=== PATIENT | female | born 1970 | race Caucasian/White ===

== ENCOUNTER 2019-01-09 07:42 | Day surgery (SDC) | payer OTHER ==
[~2019-01-09 07:42] MED LIST: ALBU90OI INH; ALBU90OI6 INH; AMRIX PO; ATEN25 PO; AZIT250 PO; BENZ100A PO; BP MED; CEPH500 PO; CIPR500 PO; CLIN150 PO; CLIN300 PO; CRUTCH3 USE; Cleocin HCl150 MG PO; DULO60 PO; ESOM20 PO; FERSU300 PO; FLUSAL2505 IH; FLUT.05NI; Flovent Diskus50 MCG INH; HYDACE5 PO; HYDHOMSY PO; Hydromet Syrup473 ML PO; IBUP600 PO; IBUP800 PO; LEVSOD100 PO; LEVSOD112 PO; LEVSOD150 PO; MIRT15 PO; MULVITMINE; Mucinex600 MG PO; NAPR500 PO; NITR100CA PO; Norco 10-325 T1 EACH PO; OMEP20ER PO; ONDA4 PO; ONDA4ODT MM; OXYACE5T PO; OXYC5 PO; PERM5TC TOP; PRED20 PO; PROACE100 PO; PROAIR HFA; PROM25 PO; RANI150 PO; RXALBOI INH; RXCEPH500 PO; RXONDA4ODT MM; RXOXYACE PO; RXPROM25 PO; SULTRIDS PO; TRAM50 PO; ULTRA-LIGHT RO1 EACH MC; Ultram50 MG PO; Zofran Odt4 MG SL
--- NOTE | 2019-01-09 08:40 | NUR ---
PT ALLERGIES REVIEWED. PT STATES SHE IS UNSURE IF SHE HAS HAD IV IODINE BUT IF SHE HAS SHE DID NOT EXPERIENCE ANY ADVERSE REACTIONS. REPORTS HAS HAD TOPICAL IODINE WITHOUT ISSUES.
--- NOTE | 2019-01-09 09:40 | NUR ---
Ambulatory in Day Surgery PRE CTA. History, Chart, Medications and Allergies reviewed before start of procedure.Patient confirms NPO status and agrees with scheduled surgery. Patient up to Ambulate independently. Gait steady POST CTA. [facility]MED WITH [facility] PT HAS APPOINTMENT AT 1300. PT NOTIFIED OF APPOINTMENT TIME.
== END 2019-01-09 22:52 | disposition home or self-care (01) ==
LOC: CT 07:42 → ORD 07:42 → CT 09:00 → ORD 22:52
DX: R55 Syncope and collapse (principal); R00.2 Palpitations; I44.0 Atrioventricular block, first degree; I25.10 Atherosclerotic heart disease of native coronary artery without angina pectoris; E03.9 Hypothyroidism, unspecified; I10 Essential (primary) hypertension; F32.9 Major depressive disorder, single episode, unspecified; K21.9 Gastro-esophageal reflux disease without esophagitis; E88.81 Metabolic syndrome and other insulin resistance; J45.909 Unspecified asthma, uncomplicated; G43.909 Migraine, unspecified, not intractable, without status migrainosus; M79.7 Fibromyalgia; G47.00 Insomnia, unspecified; E66.01 Morbid (severe) obesity due to excess calories; Z68.41 Body mass index [BMI] 40.0-44.9, adult; Z86.73 Personal history of transient ischemic attack (TIA), and cerebral infarction without residual deficits; Z79.899 Other long term (current) drug therapy; Z79.51 Long term (current) use of inhaled steroids; Z88.0 Allergy status to penicillin; Z88.2 Allergy status to sulfonamides; Z88.6 Allergy status to analgesic agent; Z88.1 Allergy status to other antibiotic agents; Z88.8 Allergy status to other drugs, medicaments and biological substances; Z91.041 Radiographic dye allergy status; Z91.048 Other nonmedicinal substance allergy status
CPT/HCPCS: 75574; Q9967

== ENCOUNTER → 2019-12-03 | Outpatient (CLI) | payer OTHER ==
[2019-12-03 14:38] LABS: BASOPHILS ABSOLUTE AUTO 0.03 K/mm3 (0.00-0.23); BASOPHILS PERCENT AUTO 0 % (0-2); EOSINOPHILS ABSOLUTE AUTO 0.03 K/mm3 (0.00-0.68); EOSINOPHILS PERCENT AUTO 0 % (0-6); Hemoglobin 12.6 g/dL (11.5-16.0); IMMATURE GRAN ABSOLUTE AUTO 0.06 K/mm3 (0.00-0.10); IMMATURE GRAN PERCENT AUTO 1 % (0-1); LYMPHOCYTES PERCENT AUTO 10 % (21-46); MONOCYTES ABSOLUTE AUTO 0.89 K/mm3 (0.16-1.47); MONOCYTES PERCENT AUTO 8 % (4-13); Mean Corpuscular HGB 30.2 pg (26.0-34.0); Mean Corpuscular HGB Conc 33.2 g/dL (31.5-36.5); Mean Corpuscular Volume 91 fL (80-100); Mean Platelet Volume 9.5 fL (9.1-12.4); NEUTROPHILS ABSOLUTE AUTO 9.15 K/mm3 (1.96-9.15); NEUTROPHILS PERCENT AUTO 81 % (41-73); Platelet Count 234 K/mm3 (150-400); RDW Coefficient Variation 12.4 % (11.7-14.2); RDW Standard Deviation 41.1 fL (35.1-46.3); Red Blood Cell Count 4.17 M/mm3 (3.80-5.20); White Blood Cell Count 11.26 K/mm3 (4.00-11.30)
[2019-12-03 14:46] LABS: Albumin, Blood 3.2 g/dL (3.4-5.0); Albumin/Globulin Ratio 0.6 (0.8-1.8); Bilirubin, Total 0.7 mg/dL (0.1-1.0); Bun/Creatinine Ratio 9.9 (12.0-20.0); Calcium, Blood 9.2 mg/dL (8.5-10.1); Creatinine, Blood 1.72 mg/dL (0.40-1.00); Globulin, Blood 5.6 g/dL (2.2-4.0); Total Protein, Blood 8.8 g/dL (6.4-8.2)
== END | disposition home or self-care (01) ==
LOC: LAB EV 14:32 → LAB SHORT 14:32
PROVIDERS: Physician Assistant Medical
DX: N12 Tubulo-interstitial nephritis, not specified as acute or chronic (principal)
CPT/HCPCS: 80053; 85025; 87077; 87086; 87147; 87186

== ENCOUNTER → 2022-11-07 | Outpatient (CLI) | payer OTHER ==
[2022-11-07 12:47] LABS: BASOPHILS ABSOLUTE AUTO 0.03 K/mm3 (0.00-0.23); BASOPHILS PERCENT AUTO 0 % (0-2); EOSINOPHILS ABSOLUTE AUTO 0.18 K/mm3 (0.00-0.68); EOSINOPHILS PERCENT AUTO 2 % (0-6); Hematocrit 34.8 % (33.0-51.0); IMMATURE GRAN ABSOLUTE AUTO 0.03 K/mm3 (0.00-0.10); IMMATURE GRAN PERCENT AUTO 0 % (0-1); LYMPHOCYTES ABSOLUTE AUTO 2.28 K/mm3 (0.84-5.20); LYMPHOCYTES PERCENT AUTO 27 % (21-46); MONOCYTES ABSOLUTE AUTO 0.53 K/mm3 (0.16-1.47); MONOCYTES PERCENT AUTO 6 % (4-13); Mean Corpuscular HGB 25.1 pg (26.0-34.0); Mean Corpuscular HGB Conc 31.6 g/dL (31.5-36.5); Mean Corpuscular Volume 79 fL (80-100); Mean Platelet Volume 9.2 fL (9.1-12.4); NEUTROPHILS ABSOLUTE AUTO 5.41 K/mm3 (1.96-9.15); NEUTROPHILS PERCENT AUTO 64 % (41-73); Platelet Count 405 K/mm3 (150-400); RDW Coefficient Variation 16.4 % (11.7-14.2); RDW Standard Deviation 46.5 fL (35.1-46.3); Red Blood Cell Count 4.39 M/mm3 (3.80-5.20); White Blood Cell Count 8.46 K/mm3 (4.00-11.30)
[2022-11-07 12:59] LABS: Albumin/Globulin Ratio 0.6 (0.8-1.8); Bilirubin, Total 0.4 mg/dL (0.1-1.0); Bun/Creatinine Ratio 12.7 (12.0-20.0); Calcium, Blood 9.1 mg/dL (8.5-10.1); Creatinine, Blood 1.1 mg/dL (0.40-1.00); Globulin, Blood 4.7 g/dL (2.2-4.0); Potassium, Blood 3.7 mmol/L (3.5-5.5); Total Protein, Blood 7.7 g/dL (6.4-8.2)
[2022-11-07 16:17] LABS: Thyroid Stimulating Hormone 79.8 uIU/mL (0.360-4.800)
== END | disposition home or self-care (01) ==
LOC: LAB SHORT 11:55 → LAB 11:55
PROVIDERS: Physician Assistant
DX: R06.01 Orthopnea (principal); R82.90 Unspecified abnormal findings in urine; R53.82 Chronic fatigue, unspecified
CPT/HCPCS: 80053; 82746; 83880; 84443; 84484; 85025; 87077; 87086; 87147; 87186

== ENCOUNTER 2024-09-08 17:38 | Inpatient (IN) | payer OTHER ==
[~2024-09-08] VITALS: Ht 177.8 cm; Wt 116.2 kg
[~2024-09-08 17:38] MED LIST changes: +ASPIRIN REGIMEN81 MG PO; +ATOR20 PO; +Acetaminophen325 M1 PO; +Aspir 8181 MG PO; +Buspirone HCl15 MG PO; +CLOBETASOL EMOL15 G1 TOP; +DUPIXENT300 MG/21 SC; +EUTHYROX175 MCG PO; +FAMO20 PO; +IRON PO; -LEVSOD100 PO; +LUTEIN20 MG PO; +METFORMIN HCL500 M2 PO; +METFORMIN HCL500 M3 PO; +METOPROLOL SUCC25 MG PO; +MULVITA PO; +NEURONTIN300 MG PO; +NYSTATIN100000 U10 MT; +ONDA4ODT SL; +STOOL SOFTENER PO; +VITAMIN B-122000 MC1 PO; +VITAMIN D310 MC4 PO
[2024-09-08 18:05] LABS: BASOPHILS ABSOLUTE AUTO 0.03 K/mm3 (0.00-0.23); BASOPHILS PERCENT AUTO 1 % (0-2); EOSINOPHILS ABSOLUTE AUTO 0.21 K/mm3 (0.00-0.68); EOSINOPHILS PERCENT AUTO 3 % (0-6); Hematocrit 39.9 % (33.0-51.0); Hemoglobin 13.1 g/dL (11.5-16.0); IMMATURE GRAN ABSOLUTE AUTO 0.01 K/mm3 (0.00-0.10); IMMATURE GRAN PERCENT AUTO 0 % (0-1); LYMPHOCYTES ABSOLUTE AUTO 2.62 K/mm3 (0.84-5.20); LYMPHOCYTES PERCENT AUTO 40 % (21-46); MONOCYTES ABSOLUTE AUTO 0.48 K/mm3 (0.16-1.47); MONOCYTES PERCENT AUTO 7 % (4-13); Mean Corpuscular HGB Conc 32.8 g/dL (31.5-36.5); Mean Corpuscular Volume 94 fL (80-100); NEUTROPHILS ABSOLUTE AUTO 3.18 K/mm3 (1.96-9.15); NEUTROPHILS PERCENT AUTO 49 % (41-73); NRBC ABSOLUTE 0.00 K/mm3 (0.00-0.02); NRBC Auto 0.0 /100 WBC (0.0-0.2); Platelet Count 238 K/mm3 (150-400); RDW Coefficient Variation 13.2 % (11.7-14.2); RDW Standard Deviation 45.3 fL (35.1-46.3)
[2024-09-08 18:19] LABS: Prothrombin Time Results 10.3 Sec (9.7-11.5)
[2024-09-08 18:27] LABS: Alanine Aminotransfer (ALT/SGP 23 U/L (12-78); Albumin, Blood 3.2 g/dL (3.4-5.0); Albumin/Globulin Ratio 0.8 (0.8-1.8); Anion Gap 6 mmol/L (3-11); Aspartate Aminotrans (AST/SGOT 17 U/L (12-37); Bilirubin, Total 0.4 mg/dL (0.1-1.0); Blood Urea Nitrogen 14 mg/dL (8-24); CO2, Blood 27 mmol/L (21-32); Calcium, Blood 9.3 mg/dL (8.5-10.1); Chloride, Blood 108 mmol/L (98-108); Creatinine, Blood 0.81 mg/dL (0.40-1.00); Ethanol (Alcohol), Blood, Med <3 mg/dL; Globulin, Blood 3.9 g/dL (2.2-4.0); Glucose, Blood 121 mg/dL (70-99); Potassium, Blood 4.3 mmol/L (3.5-5.5); Sodium, Blood 137 mmol/L (136-145); Total Protein, Blood 7.1 g/dL (6.4-8.2)
[2024-09-08 18:36] LABS: U Amphetamine Screen Not Detected; U Barbituate Screen Not Detected; U Benzodiazapine Screen Not Detected; U Buprenorphine Screen Not Detected; U Cannabinoids Screen DETECTED; U Cocaine Screen Not Detected; U Methadone Screen Not Detected; U Methamphetamine Screen Not Detected; U Opiates Screen Not Detected; U Oxycodone Screen Not Detected; U Phencyclidine Screen Not Detected
[2024-09-08 19:46] LABS: Source, Urine Clean Catch
[2024-09-08 19:50] LABS: Bilirubin, Urine Neg (Neg); Color, Urine Yellow (P-Yellow); Glucose Qualitative, Urine Neg (Neg); Ketones, Urine Neg (Neg); Leukocyte Esterase, Urine Neg (Neg); Protein, Urine Neg (Neg); Specific Gravity, Urine 1.010 (1.003-1.022); Urobilinogen, Urine 1+ (Normal)
[2024-09-08] MEDS ORDERED: Ketorolac Tromethamine 15mg Vial IV ONE (20:00)
[2024-09-08] MEDS ORDERED: Ondansetron HCl 2 MG / ML 2ML Vial IV PRN (21:10)
[2024-09-08] MEDS ORDERED: Albuterol 2.5 MG/3 ML VIAL INH PRN (21:15)
[2024-09-08] MEDS ORDERED: NS 1,000 ML IV ONE (21:22)
[2024-09-08] MEDS ORDERED: NS 1,000 ML IV SCH (22:10)
[2024-09-08 23:01] VITALS: BP 136/65
[2024-09-09] MEDS ORDERED: Insulin Human Lispro 100 Units/ML 3ML Syringe SC SCH
[2024-09-09] MEDS ORDERED: GABA300 PO (02:14)
[2024-09-09 04:19] VITALS: BP 125/69
[2024-09-09 04:52] LABS: Hematocrit 36.8 % (33.0-51.0); Hemoglobin 12.3 g/dL (11.5-16.0); Mean Corpuscular HGB Conc 33.4 g/dL (31.5-36.5); Mean Corpuscular Volume 92 fL (80-100); NRBC ABSOLUTE 0.00 K/mm3 (0.00-0.02); NRBC Auto 0.0 /100 WBC (0.0-0.2); Platelet Count 225 K/mm3 (150-400); RDW Coefficient Variation 13.1 % (11.7-14.2); RDW Standard Deviation 43.8 fL (35.1-46.3)
[2024-09-09 05:08] LABS: Anion Gap 7.0 mmol/L (3-11); Blood Urea Nitrogen 13.0 mg/dL (8-24); CO2, Blood 26.0 mmol/L (21-32); Calcium, Blood 8.7 mg/dL (8.5-10.1); Chloride, Blood 109.0 mmol/L (98-108); Creatinine, Blood 0.88 mg/dL (0.40-1.00); Glucose, Blood 89.0 mg/dL (70-99); Potassium, Blood 4.0 mmol/L (3.5-5.5); Sodium, Blood 138.0 mmol/L (136-145)
[2024-09-09] MEDS ORDERED: Pantoprazole Sodium 40 MG Injection IV SCH (06:00)
--- NOTE | 2024-09-09 06:39 | NUR ---
NEW ADMIT / NIGH SHIFT SUMMARY NEW ADMIT FOR ACUTE CVA SYMPTOMS. 53 Y/O FULL CODE. PT ARRIVED TO ROOM AT APPROX 2330. PT TRANSFERED WITH SLIDER SHEET PT REPORTS SHE FEELS TO WEAK TO STAND. PT IS AMBULATORY AT BASELINE WITHOUT ASSISTIVE DEVICES. PT TO HAVE MRI; FORM COMPLETED AND FAXED. PUREWICK PLACED IN ED AND CONTINUED ON MED FLOOR. NIH SCORE 4. PT HAS LEFT SIDE FACIAL DROOP AND SLIGHT [place] TO LEFT ARM WHEN TOUCHING FINGER TO NOSE. PT A/OX3. UNSURE OF DATE. VERBAL RESPONSES ARE SLOW. PT LIVES AT HOME WITH . PT DENIES SAFETY CONCERNS AND FOOD INSECURITIES AT HOME. 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 PT PASSED BEDSIDE SWALLOW EVAL, ABLE TO SWALLOW PILLS WHOLE WITH WATER. EDUCATED PT ON SITTING UPRIGHT FOR ORAL INTAKE. PT, ST, AND OT ORDERED. PT ON TELE. SINUS JAROD WITH 1 DEG AV BLOCK. NS INFUSING AT 100MLS HOUR. PT VOCALIZING CONCERNS FOR MRI AND PT REPORTS SHE IS CLOSTERPHOBIC. PT ORIENTED TO ROOM AND CALL LIGHT. CALL LIGHT ACCESSIBLE. CARE WILL CONTINUE UNTIL REPORT GIVEN TO ONCOMING NURSE.
[2024-09-09 07:22] VITALS: BP 131/77
[2024-09-09] MEDS ORDERED: Enoxaparin 40 MG/0.4 ML SYR SC SCH (09:00)
[2024-09-09 10:37] VITALS: BP 132/70
--- NOTE | 2024-09-09 14:24 | NUR ---
PT WAS TRANSPORTED TO IMAGING TO COMPLETE MRI. PT WAS MEDICATED PER EMAR PRIOR TO TRANSPORT. PT WAS UNABLE TO COMPLETE MRI D/T ANXIETY. CALL TO DR. BECKER WITH ABOVE INFORMATION AND ADDITIONAL MEDICATION ORDER OBTAINED FOR ADMINISTRATION PRIOR TO NEXT MRI ATTEMPT.
[2024-09-09 15:45] VITALS: BP 126/67
--- NOTE | 2024-09-09 17:17 | NUR ---
End of shift summary: Pt is alert and oriented x3 with slow/soft speech noted. Pt with scheduled MRI today and was unable to complete d/t anxiety. Pt denies CP, SOB, pain, or N/V during this shift. All medications administered per EMAR. Pt with Pure Wick in place with good urine suction/flow. Pt resting comfortably with spouse in room. Bed in lowest position and call light within reach. Will continue to monitor until report given to oncoming shift nurse.
[2024-09-09 19:15] VITALS: BP 121/66
[2024-09-09 23:48] VITALS: BP 118/70
[2024-09-10 03:51] VITALS: BP 131/71
--- NOTE | 2024-09-10 04:18 | NUR ---
SHIFT SUMMARY PT ADITTD FOR LEFT SIDED CVA. PT IS ON TELE. PT HAS [employer] SYSTEM IN PLACE. PT DOES NOT HAVE ANY SKIN ISSUES. PT IS ALERT AND ORIENTED TIMES 3-4. MEDICATION ONE PILL AT A TIME NO STRAW. PT IS COOPERATIVE WITH CARE AND APPEARS TO HAVE SLEPT THROUGH THE NIGHT WITHOUT ISSUES. BED RAILS TIMES 2, CALL LIGHT WITHIN REACH, AND BED IN LOWEST POSITION.
[2024-09-10 07:11] VITALS: BP 140/93
[2024-09-10 08:15] LABS: Anion Gap 6 mmol/L (3-11); Blood Urea Nitrogen 12 mg/dL (8-24); CHOL/HDL RATIO 2.1; CO2, Blood 28 mmol/L (21-32); Calcium, Blood 9.1 mg/dL (8.5-10.1); Chloride, Blood 108 mmol/L (98-108); Cholesterol 194 mg/dL (50-200); Creatinine, Blood 0.88 mg/dL (0.40-1.00); Glucose, Blood 92 mg/dL (70-99); HDL Cholesterol 91 mg/dL (>39); LDL/HDL RATIO 1.0; Low Density Lipoprotein Chol 88 mg/dL (0-110); Potassium, Blood 4.0 mmol/L (3.5-5.5); Sodium, Blood 138 mmol/L (136-145); Triglycerides 74 mg/dL (30-160); Very Low Density Lipoprot Chol 14 mg/dL (6-32)
[2024-09-10 08:20] LABS: BASOPHILS ABSOLUTE AUTO 0.03 K/mm3 (0.00-0.23); BASOPHILS PERCENT AUTO 1 % (0-2); EOSINOPHILS ABSOLUTE AUTO 0.20 K/mm3 (0.00-0.68); EOSINOPHILS PERCENT AUTO 4 % (0-6); Hematocrit 37.9 % (33.0-51.0); Hemoglobin 12.6 g/dL (11.5-16.0); IMMATURE GRAN ABSOLUTE AUTO 0.01 K/mm3 (0.00-0.10); IMMATURE GRAN PERCENT AUTO 0 % (0-1); LYMPHOCYTES ABSOLUTE AUTO 2.15 K/mm3 (0.84-5.20); LYMPHOCYTES PERCENT AUTO 40 % (21-46); MONOCYTES ABSOLUTE AUTO 0.40 K/mm3 (0.16-1.47); MONOCYTES PERCENT AUTO 7 % (4-13); Mean Corpuscular HGB Conc 33.2 g/dL (31.5-36.5); Mean Corpuscular Volume 91 fL (80-100); NEUTROPHILS ABSOLUTE AUTO 2.65 K/mm3 (1.96-9.15); NEUTROPHILS PERCENT AUTO 49 % (41-73); NRBC ABSOLUTE 0.00 K/mm3 (0.00-0.02); NRBC Auto 0.0 /100 WBC (0.0-0.2); Platelet Count 230 K/mm3 (150-400); RDW Coefficient Variation 13.2 % (11.7-14.2); RDW Standard Deviation 43.7 fL (35.1-46.3)
[2024-09-10] MEDS ORDERED: Multivitamins 1 Tab PO SCH (09:00)
[2024-09-10] MEDS ORDERED: Beta-Carotene (A) W-C & E/Min 1 Tab PO SCH (09:00)
[2024-09-10] MEDS ORDERED: DULoxetine HCL 60 MG Capsule DR PO SCH (09:00)
--- NOTE | 2024-09-10 10:34 | NUR ---
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 SPOKE WITH DR. TRIPP WHO STATED HE WOULD HIGHLY RECOMMEND MRI TO BE COMPLETED AT HOSPITAL BUT CAN DO IT OUTPATIENT IF PREFERRED. PT RECOMMENDING SNF BUT PT DENIED. PT AGREEABLE TO HOME HEALTH AT THIS TIME.
[2024-09-10] MEDS ORDERED: PANTOPRAZOLE SO20 M2 PO (11:08)
[2024-09-10] MEDS ORDERED: CLOP75 PO (11:08)
--- NOTE | 2024-09-10 14:09 | NUR ---
DISCHARGE: PT D/C @1316 VIA WHEELCHAIR WITH FAMILY. IV REMOVED BY THIS RN W/O COMPLICATIONS. TELE SENT BACK. NEW MEDICATIONS FAXED TO [facility]. PT AWARE TO CALL TOMORROW 09/11/24 TO SCHEDULE EARLIER FOLLOW-UP APPOINTMENT WITH PCP. PT WILL NEED TO DISCUSS HAVING MRI OUTPT WITH PCP. QUESTIONS ANSWERED TO THE BEST OF THIS RN ABILITY AT TIME OF D/C.
== END 2024-09-10 13:16 | disposition home health service (06) | DRG 65 ==
LOC: ER 17:38 → MEDS 21:08
PROVIDERS: Internal Medicine; Nurse Practitioner Acute Care; Student in an Organized Health Care Education/Training Program; ADMIT Student in an Organized Health Care Education/Training Program
DX: I63.9 Cerebral infarction, unspecified (principal); G81.94 Hemiplegia, unspecified affecting left nondominant side; Z68.41 Body mass index [BMI] 40.0-44.9, adult; E11.22 Type 2 diabetes mellitus with diabetic chronic kidney disease; N18.31 Chronic kidney disease, stage 3a; I25.10 Atherosclerotic heart disease of native coronary artery without angina pectoris; G25.81 Restless legs syndrome; M17.0 Bilateral primary osteoarthritis of knee; J45.909 Unspecified asthma, uncomplicated; F51.04 Psychophysiologic insomnia; E03.9 Hypothyroidism, unspecified; K21.9 Gastro-esophageal reflux disease without esophagitis; I12.9 Hypertensive chronic kidney disease with stage 1 through stage 4 chronic kidney disease, or unspecified chronic kidney disease; E66.01 Morbid (severe) obesity due to excess calories; R29.703 NIHSS score 3; G43.909 Migraine, unspecified, not intractable, without status migrainosus; M79.7 Fibromyalgia; D63.1 Anemia in chronic kidney disease; D50.9 Iron deficiency anemia, unspecified; F32.A Depression, unspecified; R47.81 Slurred speech; Z88.0 Allergy status to penicillin; Z88.2 Allergy status to sulfonamides; Z88.8 Allergy status to other drugs, medicaments and biological substances; J45.20 Mild intermittent asthma, uncomplicated; E55.9 Vitamin D deficiency, unspecified; F41.9 Anxiety disorder, unspecified; Z90.49 Acquired absence of other specified parts of digestive tract; Z90.710 Acquired absence of both cervix and uterus; Z90.722 Acquired absence of ovaries, bilateral; Z98.890 Other specified postprocedural states; Z90.79 Acquired absence of other genital organ(s); Z79.84 Long term (current) use of oral hypoglycemic drugs; Z79.899 Other long term (current) drug therapy
CPT/HCPCS: 36415; 51701; 70450; 70496; 70498; 71045; 80048; 80053; 80061; 80320; 81003; 82947; 83036; 83605; 85025; 85027; 85610; 92523; 92610; 93005; 93010; 93306; 96374-59; 97110; 97162; 97530; 99285-25; A9270; J1650; J1885; J2470; J7030; Q9967